=== PATIENT | female | born 2000 | race Caucasian/White ===

== ENCOUNTER 2018-05-23 02:58 | Emergency (ER) | payer OTHER ==
--- NOTE | 2018-05-23 03:00 | EDPHY ---
H & P Time Seen by Provider: 05/23/18 02:59 HPI/ROS: Chief Complaint: Alcohol intoxication HPI: 18-year-old college student brought in by EMS for being intoxicated and vomiting. Patient is vomited once. Patient states she has had both beer and hard liquor tonight. Patient was playing and drinking game and got very upset. She has been crying and hyperventilating. She has not fallen down. She has not hit her head. She has no loss of consciousness. Patient is very apologetic for drinking and states that she never drinks as much. No past medical history. No allergies to medicines. ROS: 10 systems were reviewed and were negative except those elements noted in the HPI. PMH: Denies Social History: No smoking, occasional alcohol Family History: non-contributory Physical Exam: Gen: Awake, Alert, slurred speech, smells of alcohol, crying but consolable HEENT: Nose: no rhinorrhea Eyes: PERRLA, EOMI Mouth: Moist mucosa Neck: Supple, no JVD Chest: nontender, lungs clear to auscultation Heart: S1, S2 normal, no murmur Abd: Soft, non-tender, no guarding Back: no CVA tenderness, no midline tenderness Ext: no edema, non-tender Skin: no rash Neuro: CN II-XII intact, Sensation grossly intact, Strength 5/5 in bilateral upper and lower extremities (David Fonseca) Constitutional: Initial Vital Signs Temperature (C) 36.5 C 05/23/18 03:10 Heart Rate 100 05/23/18 03:10 Respiratory Rate 18 05/23/18 03:10 Blood Pressure 118/73 05/23/18 03:10 O2 Sat (%) 100 05/23/18 03:10 O2 Delivery Mode Nasal Cannula O2 (L/minute) 2 Allergies/Adverse Reactions: No Known Allergies Allergy (Unverified 05/23/18 03:09) Home Medications: Medication Instructions Recorded Sprintec 28 Day Tablet 05/23/18 Medical Decision Making ED Course/Re-evaluation: Patient signed out to Dr. Ortiz pending improvement in mental status, ability to ambulate and no further vomiting secondary to their alcohol consumption. ( David Fonseca) 5:14 a.m.- Patient is now awake and alert, able to walk without difficulty with no ongoing vomiting. A sober friend will take her home and she will be discharged. ( Yamel Ortiz) - Data Points Medications Given: Discontinued Medications Ondansetron HCl (Zofran) 4 mg IVP EDNOW ONE Stop: 05/23/18 03:19 Last Admin: 05/23/18 03:21 Dose: 4 mg Departure - Departure Disposition: Home, Routine, Self-Care Clinical Impression: Alcoholic intoxication Condition: Good Instructions: Alcohol Intoxication (ED) Referrals: Patient,NotPresent [Unknown] - As per Instructions
[2018-05-23] MEDS ORDERED: ONDANSETRON 4 MG/2 ML VIAL IVP ONE (03:18)
[2018-05-23 05:21] VITALS: BP 132/70
== END 2018-05-23 05:40 | disposition home or self-care (01) ==
DX: F10.920 Alcohol use, unspecified with intoxication, uncomplicated (principal); R11.10 Vomiting, unspecified
CPT/HCPCS: 96374; J2405